=== PATIENT | female | born 1940 | race African-American/Black ===

== ENCOUNTER 2016-11-27 09:44 | Outpatient (CLI) | payer MEDICARE ==
[2016-11-27 12:30] LABS: Hemoglobin A1c 5.5 % (4.0-6.0)
== END 2016-11-27 09:45 | disposition home or self-care (01) ==
LOC: NAVSJIPCSP 09:44
PROVIDERS: ATTEND Internal Medicine
DX: E11.29 Type 2 diabetes mellitus with other diabetic kidney complication (principal); Z79.899 Other long term (current) drug therapy
CPT/HCPCS: 36415; 80061; 83036

== ENCOUNTER 2017-02-27 09:08 | Outpatient (CLI) | payer MEDICARE ==
[2017-02-27 12:32] LABS: Hemoglobin A1c 5.5 % (4.0-6.0)
[2017-02-27 13:13] LABS: Cardiac Risk 2.3 (Less than 4.5)
== END 2017-02-27 09:09 | disposition home or self-care (01) ==
LOC: NAVSJIPCSP 09:08
PROVIDERS: ATTEND Internal Medicine
DX: E11.29 Type 2 diabetes mellitus with other diabetic kidney complication (principal); I11.9 Hypertensive heart disease without heart failure; E78.5 Hyperlipidemia, unspecified; Z79.899 Other long term (current) drug therapy
CPT/HCPCS: 36415; 80061; 83036

== ENCOUNTER 2017-06-12 09:07 | Outpatient (CLI) | payer MEDICARE ==
[2017-06-12 12:28] LABS: Hemoglobin A1c 5.5 % (4.0-6.0)
[2017-06-12 12:53] LABS: Cardiac Risk 2.2 (Less than 4.5)
== END 2017-06-12 09:08 | disposition home or self-care (01) ==
LOC: NAVSJIPCSP 09:07
PROVIDERS: ATTEND Internal Medicine
DX: E11.29 Type 2 diabetes mellitus with other diabetic kidney complication (principal); E78.5 Hyperlipidemia, unspecified
CPT/HCPCS: 36415; 80061; 83036

== ENCOUNTER 2020-01-28 19:33 | Inpatient (IN) | payer MEDICARE ==
[2020-01-28] MEDS ORDERED: Dextrose 50% Abboject 50 ML SYRINGE IVP PRN (20:31)
[2020-01-28] MEDS ORDERED: HumaLOG 300 UNITS/3 ML VIAL SC PRN ×2 (20:31)
[2020-01-28] MEDS ORDERED: Dextrose 5% in Water 1,000 ML IV PRN (20:31)
[2020-01-28] MEDS ORDERED: AZELASTINE HCL 0.15% EA NARE PRN (22:26)
[2020-01-28] MEDS ORDERED: Famotidine 20 MG TAB PO PRN (22:29)
[2020-01-28] MEDS ORDERED: Fluticasone Propionate Nasal Spray 16 gm Bottle NASAL PRN (22:29)
[2020-01-28] MEDS ORDERED: HYDROcodone/Acetaminophen 5/325 mg Tablet PO PRN ×2 (22:30→22:32)
[2020-01-28] MEDS ORDERED: Loratadine 10 MG TAB PO PRN (22:32)
[2020-01-28] MEDS ORDERED: traMADol HCl 50 MG TAB PO PRN (22:33)
[2020-01-29 05:52] LABS: ALT (SGPT) 7 U/L (8-55); AST (SGOT) 15 U/L (5-34); Albumin 3.3 g/dL (3.4-4.8); Alkaline Phosphatase 48 U/L (40-110); Anion Gap 14 mmol/L (10-20); BUN (Urea Nitrogen) 15 mg/dL (9.8-20.1); Bilirubin, Total 0.4 mg/dL (0.2-1.2); Calc. Creatinine Clearance 49 mL/min (70-130); Carbon Dioxide 24 mmol/L (23-31); Chloride 105 mmol/L (98-107); Estimated GFR-MDRD 56; Globulin 2.9 g/dL (2.4-3.5); Glucose 96 mg/dL (83-110); Potassium 4.2 mmol/L (3.5-5.1); Protein, Total 6.2 g/dL (6.0-8.3); Sodium 139 mmol/L (136-145)
[2020-01-29 05:57] LABS: Anisocytosis SLIGHT = 6-15 cells (100X) (0-5/hpf); Band 20 % (5-11); Eosinophils 4 % (0-10); Hemoglobin 8.3 g/dL (12.0-16.0); Hypochromia MODERATE=16-30 cells (100X) (0-5/hpf); Lymphocytes 9 % (21-51); MDiff Complete? YES; Mean Corpuscular HGB CONC 30.4 g/dL (32.0-36.0); Mean Corpuscular Hemoglobin 25.7 pg (27.0-31.0); Mean Corpuscular Volume 84.6 fL (78.0-98.0); Mean Platelet Volume 9.1 fL (7.4-10.4); Metamyelocyte 1 % (0-0); Monocytes 4 % (0-10); Neutrophil 62 % (42-75); Platelet Count 188 thou/uL (130-400); Platelet Morphology Comment Appears Adequate; Polychromasia SLIGHT = 2-3 cells (100X) (0-2/hpf); RBC Distribution Width 13.2 % (11.5-14.5); Red Blood Cell (RBC) Count 3.25 mill/uL (4.20-5.40); White Blood Cell (WBC) Count 11.6 thou/uL (4.8-10.8)
[2020-01-29] MEDS ORDERED: metFORMIN 500 MG TAB PO SCH (08:00)
[2020-01-29] MEDS ORDERED: Carvedilol 6.25 MG TAB PO SCH (09:00)
[2020-01-29] MEDS ORDERED: Aspirin 81 mg Enteric Coated Tablet PO SCH (09:00)
[2020-01-29] MEDS ORDERED: Amlodipine 5 MG TAB PO SCH (09:00)
[2020-01-29] MEDS ORDERED: Lisinopril 20 MG TAB PO SCH (09:00)
[2020-01-29] MEDS ORDERED: Senokot S 8.6-50 MG TAB PO SCH (09:00)
[2020-01-29] MEDS ORDERED: Multivitamin W/ Minerals 1 TAB PO SCH (09:00)
--- NOTE | 2020-01-29 09:49 | HP ---
PRINCIPAL DIAGNOSIS: Status post left hip arthroplasty for physical therapy. BRIEF HISTORY: This is a very pleasant 79-year-old female who is well known to me, underwent left total hip replacement. She was felt to be a candidate for inpatient rehabilitation and was transferred here. The patient is resting in bed and states that her pain is controlled. She states that she wants to get better and go home soon. She denies any lightheadedness or dizziness. No family at bedside. She apparently walked 120 feet yesterday. Discussed with nursing. PAST MEDICAL HISTORY: 1. Hypertension. 2. Dyslipidemia. 3. Diabetes mellitus type 2. 4. Osteoarthritis. 5. Allergic rhinitis. 6. Normocytic normochromic anemia. 7. Chronic kidney disease stage 2. ALLERGIES: NO KNOWN DRUG ALLERGIES. FAMILY HISTORY: Noncontributory to current admission. PSYCHOSOCIAL HISTORY: Denies any current tobacco, alcohol, or recreational drug abuse. MEDICATIONS: She has been transferred here on the following medications: 1. Norvasc 10 mg daily. 2. Ecotrin 81 b.i.d. 3. Lipitor 20 mg daily. 4. Carvedilol 6.25 mg b.i.d. 5. Vitamin D3 1000 international units daily. 6. Pepcid 20 mg b.i.d. 7. Flonase nasal spray 1 spray in each nostril daily. 8. Zestril 20 mg daily. 9. Claritin 10 mg daily. 10. Metformin 500 mg b.i.d. 11. Azelastine nasal spray one spray to each nostril daily. 12. [place] 5/325 one to two tabs q.6 p.r.n. ALLERGIES: NO KNOWN DRUG ALLERGIES. PAST SURGICAL HISTORY: None significant other than this recent left hip replacement. PHYSICAL EXAMINATION: GENERAL: Very pleasant 79-year-old female, who is up in bed eating breakfast. She is awake, alert, and oriented x3. She is not in any distress. She denies any concerns or questions. VITAL SIGNS: She is afebrile. T-max was 100.1 last night. It is 99.6, pulse 91, respirations 18, oxygen saturation 98% on room air, blood pressure 175/74. CARDIOVASCULAR: S1 and S2 plus. RESPIRATORY: Normal vesicular breath sounds. ABDOMEN: Soft, nontender. Bowel sounds heard in all quadrants. EXTREMITIES: Without cyanosis or clubbing. Trace edema, left leg. Left hip incision with dressing. CENTRAL NERVOUS SYSTEM: AAO x3. Cranial nerves 2 through 12 intact. Grossly nonfocal. HEENT: Normocephalic and atraumatic. Pupils are equally reacting to light and accommodation. NECK: No JVD, thyromegaly, cervical adenopathy, or throat exudates. No carotid bruits. LABORATORY VALUES: This morning shows a sodium of 139, potassium is 4.2, BUN and creatinine are 15 and 1.13. White count is 11.6, H and H are 8.3 and 27.5. INR is 1. IMPRESSION: 1. Diabetes mellitus type 2. 2. Hypertension. 3. Dyslipidemia. 4. Allergic rhinitis. 5. Osteoarthritis. 6. Chronic kidney disease, stage 2. PLAN: 1. Continue current medications. 2. 1800-calorie heart healthy ADA renal diet. 3. Accu-Cheks with sliding scale coverage. 4. DVT prophylaxis-she is on aspirin. 5. Decubitus precaution. 6. Stress ulcer prophylaxis. 7. Orthopedic precautions and incision care. 8. Routine laboratory values. 9. PT/OT eval and treat. 10. Accu-Cheks with sliding scale coverage. 11. Discussed with the patient in detail. All questions answered. Job ID: [id number]
[2020-01-29] MEDS ORDERED: Sodium Chloride 0.9% 1,000 ML IV SCH (14:15)
[2020-01-29] MEDS ORDERED: Famotidine 20 MG TAB PO PRN (14:19)
[2020-01-29] MEDS ORDERED: Loratadine 10 MG TAB PO PRN (14:20)
[2020-01-29] MEDS: metFORMIN 500 MG TAB PO SCH (17:17)
[2020-01-29] MEDS: Nystatin 500,000 UNITS/5 ML UDCUP SSW SCH ×2 (17:17→23:53)
[2020-01-29] MEDS: Senokot S 8.6-50 MG TAB PO SCH (20:44)
[2020-01-29] MEDS: Aspirin 81 mg Enteric Coated Tablet PO SCH (20:44)
[2020-01-29] MEDS: Carvedilol 6.25 MG TAB PO SCH (20:45)
[2020-01-29] MEDS: HYDROcodone/Acetaminophen 5/325 mg Tablet PO PRN (20:45)
[2020-01-29] MEDS ORDERED: Atorvastatin Calcium 20 MG TAB PO SCH (21:00)
[2020-01-29] MEDS ORDERED: Enalaprilat Dihydrate 1.25 MG/ML VIAL SLOW IVP SCH (21:00)
[2020-01-30] MEDS: Nystatin 500,000 UNITS/5 ML UDCUP SSW SCH ×4 (05:24→23:53)
[2020-01-30] MEDS: metFORMIN 500 MG TAB PO SCH ×2 (08:01→17:00)
[2020-01-30] MEDS: Senokot S 8.6-50 MG TAB PO SCH ×2 (08:02→20:48)
[2020-01-30] MEDS: Multivitamin W/ Minerals 1 TAB PO SCH (08:02)
[2020-01-30] MEDS: Aspirin 81 mg Enteric Coated Tablet PO SCH ×2 (08:02→20:48)
[2020-01-30] MEDS: Amlodipine 5 MG TAB PO SCH (09:46)
[2020-01-30] MEDS: Lisinopril 20 MG TAB PO SCH (09:47)
[2020-01-30] MEDS: Carvedilol 6.25 MG TAB PO SCH ×2 (09:47→20:48)
[2020-01-30] MEDS: HYDROcodone/Acetaminophen 5/325 mg Tablet PO PRN (20:43)
[2020-01-30] MEDS: AZELASTINE HCL 0.15% EA NARE SCH (20:57)
[2020-01-31] MEDS: HYDROcodone/Acetaminophen 5/325 mg Tablet PO PRN ×3 (05:55→20:49)
[2020-01-31] MEDS: Nystatin 500,000 UNITS/5 ML UDCUP SSW SCH ×4 (05:56→23:34)
--- NOTE | 2020-01-31 08:31 | PRG ---
DATE OF SERVICE: 01/30/[address] Irma Baker. SUBJECTIVE: The patient lying in bed, feels well. No complaints of pain at rest, but does have some pain on working with therapy, but is tolerating her pain and working with therapy. She denies any chest pain, shortness of breath, nausea, or vomiting. OBJECTIVE: VITAL SIGNS: Show temperature 97.4, pulse 72, respirations 20, O2 saturations 98% on room air, blood pressure is 160/69. LUNGS: Clear. CARDIAC: Regular rhythm. Accu-Cheks range 87 to 119. MUSCULOSKELETAL: Left lateral hip incision healing well. ASSESSMENT: 1. Resolving left total hip replacement. 2. Hypertension, controlled to goal. 3. Type 2 diabetes, controlled to goal. 4. Chronic kidney disease, stage 2, stable. PLAN: 1. Continue PT, OT. 2. Continue to monitor vital signs closely. 3. Continue stress ulcer prophylaxis. 4. Continue pain relief with [place] and monitor for constipation or nausea. Job ID: [id number]
[2020-01-31] MEDS: Amlodipine 5 MG TAB PO SCH (10:24)
[2020-01-31] MEDS: metFORMIN 500 MG TAB PO SCH ×2 (10:24→16:43)
[2020-01-31] MEDS: Aspirin 81 mg Enteric Coated Tablet PO SCH ×2 (10:25→20:45)
[2020-01-31] MEDS: Multivitamin W/ Minerals 1 TAB PO SCH (10:25)
[2020-01-31] MEDS: Lisinopril 20 MG TAB PO SCH (10:26)
[2020-01-31] MEDS: Senokot S 8.6-50 MG TAB PO SCH ×2 (10:26→20:48)
[2020-01-31] MEDS: Carvedilol 6.25 MG TAB PO SCH ×2 (10:27→20:45)
[2020-01-31] MEDS: Fluticasone Propionate Nasal Spray 16 gm Bottle NASAL SCH (10:28)
[2020-01-31] MEDS: AZELASTINE HCL 0.15% EA NARE SCH ×2 (10:37→21:01)
[2020-02-01] MEDS: HYDROcodone/Acetaminophen 5/325 mg Tablet PO PRN ×3 (05:15→21:08)
[2020-02-01] MEDS: Nystatin 500,000 UNITS/5 ML UDCUP SSW SCH ×3 (05:16→17:58)
[2020-02-01] MEDS: Multivitamin W/ Minerals 1 TAB PO SCH (09:17)
[2020-02-01] MEDS: Aspirin 81 mg Enteric Coated Tablet PO SCH ×2 (09:17→21:17)
[2020-02-01] MEDS: metFORMIN 500 MG TAB PO SCH ×2 (09:17→17:58)
[2020-02-01] MEDS: Carvedilol 6.25 MG TAB PO SCH ×2 (09:17→21:11)
[2020-02-01] MEDS: Amlodipine 5 MG TAB PO SCH (09:18)
[2020-02-01] MEDS: Fluticasone Propionate Nasal Spray 16 gm Bottle NASAL SCH (09:19)
[2020-02-01] MEDS: Senokot S 8.6-50 MG TAB PO SCH ×2 (09:19→21:11)
[2020-02-01] MEDS: Lisinopril 20 MG TAB PO SCH (09:20)
--- NOTE | 2020-02-01 09:20 | PRG ---
DATE OF SERVICE: 01/31/2020 SUBJECTIVE: The patient feels well, resting in bed, eating her supper. She has had a good day. OBJECTIVE: VITAL SIGNS: Shows her temperature is 97.5, pulse is 76, respirations are 20, O2 saturation is 96% on room air, blood pressure is 143/85. LUNGS: Clear. CARDIAC: Showed regular rhythm. ABDOMEN: Soft, nontender. EXTREMITIES: Left lateral hip incision, healing well. ASSESSMENT: 1. Resolving left total hip. 2. Hypertension, controlled to goal. 3. Type 2 diabetes, controlled to goal. 4. Chronic kidney disease, stage 2. PLAN: 1. Ready to start PT, OT again tomorrow. Continue stress ulcer prophylaxis. 2. Continue pain relief, [place]. 3. Continue Accu-Cheks. We will monitor and titrate and control diabetes. Job ID: [id number]
[2020-02-01] MEDS: AZELASTINE HCL 0.15% EA NARE SCH ×2 (09:23→21:12)
--- NOTE | 2020-02-01 20:01 | PRG ---
DATE OF SERVICE: 02/01/2020 SUBJECTIVE: Ms. Hagan is resting in bed. She is happy with her progress. She states that her pain is improving. She denies any questions or concerns. She has an appointment for followup with her ENT and I advised her it is best she reschedule that for right after discharge. She is agreeable. No active or acute issues at the moment. It is just routine followup. OBJECTIVE: VITAL SIGNS: She is afebrile. Heart rate is 69, respirations 18, oxygen saturation 96% on room air, blood pressure 144/65. CARDIOVASCULAR: S1, S2 plus. RESPIRATORY: Normal vesicular breath sounds. ABDOMEN: Soft, nontender, bowel sounds heard in all quadrants. EXTREMITIES: Without cyanosis or clubbing. Trace left leg edema. Left hip incision with dressing. CENTRAL NERVOUS SYSTEM: Awake and responsive. Generalized weakness, otherwise nonfocal. IMPRESSION: 1. Hypertension. 2. Dyslipidemia. 3. Diabetes mellitus type 2. 4. Osteoarthritis, status post left hip arthroplasty. 5. Allergic rhinitis. 6. Chronic kidney disease, stage 2. 7. Normocytic normochromic anemia. 8. Her blood sugars are great at 105, 107, 105, 100, 111 and 93. PLAN: 1. Continue current medications. 2. 1800 calorie heart healthy ADA renal diet. 3. Accu-Cheks with sliding scale coverage. 4. DVT prophylaxis with the Orthopedic recommended regimen. 5. Decubitus precautions. 6. Stress ulcer prophylaxis. 7. Orthopedic precautions and incision care. 8. Continue therapy. 9. Routine laboratory values. 10. Discussed with the patient in detail and all questions answered. Job ID: [id number]
[2020-02-02] MEDS: Nystatin 500,000 UNITS/5 ML UDCUP SSW SCH ×4 (05:28→17:34)
[2020-02-02] MEDS: Amlodipine 5 MG TAB PO SCH (08:40)
[2020-02-02] MEDS: metFORMIN 500 MG TAB PO SCH ×2 (08:40→17:34)
[2020-02-02] MEDS: Aspirin 81 mg Enteric Coated Tablet PO SCH ×2 (08:40→21:01)
[2020-02-02] MEDS: Lisinopril 20 MG TAB PO SCH (08:41)
[2020-02-02] MEDS: Senokot S 8.6-50 MG TAB PO SCH ×2 (08:41→21:01)
[2020-02-02] MEDS: Multivitamin W/ Minerals 1 TAB PO SCH (08:41)
[2020-02-02] MEDS: Carvedilol 6.25 MG TAB PO SCH ×2 (08:41→21:01)
[2020-02-02] MEDS: AZELASTINE HCL 0.15% EA NARE SCH ×2 (08:43→21:03)
[2020-02-02] MEDS: Fluticasone Propionate Nasal Spray 16 gm Bottle NASAL SCH (08:44)
[2020-02-02] MEDS: HYDROcodone/Acetaminophen 5/325 mg Tablet PO PRN ×2 (11:33→19:23)
--- NOTE | 2020-02-02 13:45 | PRG ---
DATE OF SERVICE: 02/02/2020 SUBJECTIVE: Ms. Hagan is doing well, resting in bed, finished her morning session of therapy. She is happy with her progress. Denies any questions or concerns. OBJECTIVE: VITAL SIGNS: She is afebrile. Heart rate 76, respirations 18, oxygen saturation 96% on room air, blood pressure 156/70. CARDIOVASCULAR: S1 and S2 plus. RESPIRATORY: Normal vesicular breath sounds. ABDOMEN: Soft, nontender. Bowel sounds heard in all quadrants. EXTREMITIES: Without cyanosis or clubbing. Trace left leg edema. CENTRAL NERVOUS SYSTEM: Improving deconditioning. IMPRESSION: 1. Left hip arthroplasty for osteoarthritis. 2. Diabetes mellitus type 2. 3. Hypertension. 4. Dyslipidemia. 5. Allergic rhinitis. PLAN: 1. Continue current medications. 2. 1800 calorie heart healthy ADA diet. 3. Accu-Cheks with sliding scale coverage. 4. DVT and stress ulcer prophylaxis. 5. Decubitus precautions. 6. Routine laboratory values. 7. Orthopedic precautions and incision care. 8. Physical therapy. Job ID: [id number]
[2020-02-03] MEDS: Nystatin 500,000 UNITS/5 ML UDCUP SSW SCH ×5 (02:41→23:25)
[2020-02-03] MEDS: Amlodipine 5 MG TAB PO SCH (09:35)
[2020-02-03] MEDS: Carvedilol 6.25 MG TAB PO SCH ×2 (09:35→19:53)
[2020-02-03] MEDS: HYDROcodone/Acetaminophen 5/325 mg Tablet PO PRN ×2 (09:35→19:55)
[2020-02-03] MEDS: metFORMIN 500 MG TAB PO SCH ×2 (09:36→17:32)
[2020-02-03] MEDS: Aspirin 81 mg Enteric Coated Tablet PO SCH ×2 (09:36→19:53)
[2020-02-03] MEDS: Senokot S 8.6-50 MG TAB PO SCH ×2 (09:36→19:53)
[2020-02-03] MEDS: Multivitamin W/ Minerals 1 TAB PO SCH (09:36)
[2020-02-03] MEDS: Lisinopril 20 MG TAB PO SCH (09:36)
[2020-02-03] MEDS: Fluticasone Propionate Nasal Spray 16 gm Bottle NASAL SCH (09:42)
[2020-02-03] MEDS: AZELASTINE HCL 0.15% EA NARE SCH ×2 (09:43→20:52)
--- NOTE | 2020-02-03 13:36 | PRG ---
DATE OF SERVICE: 02/03/2020 SUBJECTIVE: Ms. Hagan is doing well, improving with therapy. Pain is under control. Denies any questions or concerns. OBJECTIVE: VITAL SIGNS: She is afebrile, heart rate is 70, respirations 18, oxygen saturation 97% on room air, blood pressure is 130/60. CARDIOVASCULAR SYSTEM: S1 and S2 plus. RESPIRATORY SYSTEM: Normal vesicular breath sounds. ABDOMEN: Soft, nontender. Bowel sounds heard in all quadrants. EXTREMITIES: Without cyanosis or clubbing. Left hip incision with dressing. CENTRAL NERVOUS SYSTEM: Grossly nonfocal. LABORATORY DATA: Blood sugars are great at 0109 hours, 85, 113, 106, and 115. IMPRESSION: 1. Diabetes mellitus, type 2. 2. Hypertension. 3. Dyslipidemia. 4. Osteoarthritis. 5. Allergic rhinitis. 6. Improving deconditioning. PLAN: 1. Continue current medications. 2. 1800 calorie heart healthy ADA diet. 3. Accu-Cheks with sliding scale coverage. 4. Orthopedic precautions and incision care. 5. DVT prophylaxis per Orthopedic recommendations. 6. Decubitus precaution. 7. Stress ulcer prophylaxis. 8. Routine laboratory values. 9. Therapy. Job ID: [id number]
[2020-02-04] MEDS: Nystatin 500,000 UNITS/5 ML UDCUP SSW SCH ×3 (05:37→17:50)
[2020-02-04] MEDS: Multivitamin W/ Minerals 1 TAB PO SCH (09:15)
[2020-02-04] MEDS: Amlodipine 5 MG TAB PO SCH (09:15)
[2020-02-04] MEDS: metFORMIN 500 MG TAB PO SCH ×2 (09:15→17:50)
[2020-02-04] MEDS: Senokot S 8.6-50 MG TAB PO SCH ×2 (09:16→21:40)
[2020-02-04] MEDS: Carvedilol 6.25 MG TAB PO SCH ×2 (09:16→21:40)
[2020-02-04] MEDS: Aspirin 81 mg Enteric Coated Tablet PO SCH ×2 (09:16→21:40)
[2020-02-04] MEDS: Fluticasone Propionate Nasal Spray 16 gm Bottle NASAL SCH (09:16)
[2020-02-04] MEDS: Lisinopril 20 MG TAB PO SCH (09:16)
[2020-02-04] MEDS: HYDROcodone/Acetaminophen 5/325 mg Tablet PO PRN ×2 (09:17→17:50)
[2020-02-04] MEDS: AZELASTINE HCL 0.15% EA NARE SCH ×2 (09:31→21:43)
--- NOTE | 2020-02-04 13:25 | PRG ---
DATE OF SERVICE: 02/04/2020 SUBJECTIVE: Ms. Hagan is doing well. Denies any complaints. Resting comfortably. Pain is improving. Happy with her progress. Discussed with Therapy and they feel like she should be safe to go home, improved enough, next . OBJECTIVE: VITAL SIGNS: She is afebrile. Heart rate 78, respirations 18, oxygen saturation 98% on room air, blood pressure 153/70. CARDIOVASCULAR: S1 and S2 plus. RESPIRATORY: Normal vesicular breath sounds. ABDOMEN: Soft, nontender. Bowel sounds heard in all quadrants. EXTREMITIES: Without cyanosis or clubbing. IMPRESSION: 1. Diabetes mellitus type 2. 2. Hypertension. 3. Dyslipidemia. 4. Allergic rhinitis. 5. Status post left hip arthroplasty. PLAN: 1. Continue current medications. 2. 1800 calorie heart healthy ADA diet. 3. Accu-Cheks with sliding scale coverage. 4. DVT prophylaxis per Orthopedic recommendation. 5. Orthopedic precautions and incision care. 6. Physical therapy. 7. Routine laboratory values. Job ID: [id number]
[2020-02-05] MEDS: Nystatin 500,000 UNITS/5 ML UDCUP SSW SCH ×4 (00:01→16:47)
[2020-02-05] MEDS: HYDROcodone/Acetaminophen 5/325 mg Tablet PO PRN ×2 (09:07→21:27)
[2020-02-05] MEDS: Multivitamin W/ Minerals 1 TAB PO SCH (09:11)
[2020-02-05] MEDS: Carvedilol 6.25 MG TAB PO SCH ×2 (09:11→21:29)
[2020-02-05] MEDS: Amlodipine 5 MG TAB PO SCH (09:11)
[2020-02-05] MEDS: metFORMIN 500 MG TAB PO SCH ×2 (09:11→16:47)
[2020-02-05] MEDS: Senokot S 8.6-50 MG TAB PO SCH ×2 (09:11→21:28)
[2020-02-05] MEDS: Aspirin 81 mg Enteric Coated Tablet PO SCH ×2 (09:12→21:29)
[2020-02-05] MEDS: Lisinopril 20 MG TAB PO SCH (09:12)
[2020-02-05] MEDS: Fluticasone Propionate Nasal Spray 16 gm Bottle NASAL SCH (09:13)
[2020-02-05] MEDS: AZELASTINE HCL 0.15% EA NARE SCH ×2 (09:14→21:26)
--- NOTE | 2020-02-05 09:32 | PRG ---
DATE OF SERVICE: 02/05/2020 SUBJECTIVE: Ms. Hagan is resting in bed after finishing breakfast. She is feeling lazy today. She denies any questions or concerns. She is happy with her progress. Pain is well controlled. Discussed with nursing. OBJECTIVE: VITAL SIGNS: She is afebrile. Heart rate 74, respirations 20, oxygen saturation 97% on room air, blood pressure is 126/55. CARDIOVASCULAR: S1, S2 plus. RESPIRATORY: Normal vesicular breath sounds. ABDOMEN: Soft and nontender. Bowel sounds heard in all quadrants. EXTREMITIES: Without cyanosis or clubbing. Trace left leg edema. Left hip incision is healthy. CENTRAL NERVOUS SYSTEM: Grossly nonfocal. LABORATORY DATA: Blood sugars are 114, 108, 118, 82, 109, and 94. IMPRESSION: 1. Diabetes mellitus type 2. 2. Hypertension. 3. Dyslipidemia. 4. Allergic rhinitis. 5. Osteoarthritis, status post left hip arthroplasty. 6. Chronic kidney disease stage 2. PLAN: 1. Continue current medications. 2. 1800-calorie heart healthy ADA diet. 3. Accu-Cheks with sliding scale coverage. 4. Orthopedic precautions and incision care. 5. DVT prophylaxis per Orthopedic recommendations. 6. Decubitus precaution. 7. Stress ulcer prophylaxis. 8. Continue therapy. 9. Routine laboratory values. Job ID: [id number]
[2020-02-05 11:49] VITALS: BMI 21.2
[2020-02-06] MEDS: Nystatin 500,000 UNITS/5 ML UDCUP SSW SCH ×4 (00:08→17:32)
[2020-02-06] MEDS: Multivitamin W/ Minerals 1 TAB PO SCH (08:11)
[2020-02-06] MEDS: Amlodipine 5 MG TAB PO SCH (08:11)
[2020-02-06] MEDS: Lisinopril 20 MG TAB PO SCH (08:12)
[2020-02-06] MEDS: metFORMIN 500 MG TAB PO SCH ×2 (08:12→17:32)
[2020-02-06] MEDS: Carvedilol 6.25 MG TAB PO SCH ×2 (08:12→21:13)
[2020-02-06] MEDS: Senokot S 8.6-50 MG TAB PO SCH ×2 (08:12→21:13)
[2020-02-06] MEDS: Aspirin 81 mg Enteric Coated Tablet PO SCH ×2 (08:12→21:13)
[2020-02-06] MEDS: Fluticasone Propionate Nasal Spray 16 gm Bottle NASAL SCH (08:56)
[2020-02-06] MEDS: AZELASTINE HCL 0.15% EA NARE SCH ×2 (08:57→21:13)
--- NOTE | 2020-02-06 15:46 | PRG ---
DATE OF SERVICE: SUBJECTIVE: Ms. Hagan is doing well. She is up in her bed, working on Vessix. She apparently is doing her bed exercises. She is happy with her progress. Pain is well controlled. OBJECTIVE: VITAL SIGNS: She is afebrile. Heart rate 72, respirations 16, oxygen saturation 99% on room air, and blood pressure 141/66. CARDIOVASCULAR SYSTEM: S1 and S2 plus. RESPIRATORY SYSTEM: Normal vesicular breath sounds. ABDOMEN: Soft and nontender. Bowel sounds heard in all quadrants. EXTREMITIES: Without cyanosis or clubbing. Hip incision is healthy. IMPRESSION: 1. Diabetes mellitus, type 2. 2. Hypertension. 3. Dyslipidemia. 4. Osteoarthritis, status post left hip arthroplasty. 5. Allergic rhinitis. 6. Chronic kidney disease stage 2 and improving deconditioning. PLAN: 1. Continue current medications. 2. 1800-calorie heart healthy ADA diet. 3. Accu-Cheks with sliding scale coverage. 4. Orthopedic precautions. 5. DVT prophylaxis. 6. Decubitus precaution. 7. Stress ulcer prophylaxis. 8. Routine laboratory values. Job ID: [id number]
[2020-02-06] MEDS: HYDROcodone/Acetaminophen 5/325 mg Tablet PO PRN (21:14)
[2020-02-07] MEDS: Nystatin 500,000 UNITS/5 ML UDCUP SSW SCH ×5 (01:34→23:52)
[2020-02-07] MEDS: Lisinopril 20 MG TAB PO SCH (08:00)
[2020-02-07] MEDS: metFORMIN 500 MG TAB PO SCH ×2 (08:00→17:19)
[2020-02-07] MEDS: Multivitamin W/ Minerals 1 TAB PO SCH (08:00)
[2020-02-07] MEDS: Aspirin 81 mg Enteric Coated Tablet PO SCH ×2 (08:01→20:30)
[2020-02-07] MEDS: Carvedilol 6.25 MG TAB PO SCH ×2 (08:01→20:30)
[2020-02-07] MEDS: Amlodipine 5 MG TAB PO SCH (08:01)
[2020-02-07] MEDS: Senokot S 8.6-50 MG TAB PO SCH ×2 (08:01→20:30)
[2020-02-07] MEDS: AZELASTINE HCL 0.15% EA NARE SCH ×2 (08:02→20:30)
[2020-02-07] MEDS: Fluticasone Propionate Nasal Spray 16 gm Bottle NASAL SCH (08:10)
--- NOTE | 2020-02-07 12:54 | PRG ---
DATE OF SERVICE: 02/07/2020 SUBJECTIVE: Ms. Hagan is up on the side of her bed, finishing up lunch. She is happy with her progress. She is enjoying her Saturday. Denies any questions or concerns. Discharge date is still set for coming . OBJECTIVE: VITAL SIGNS: She is afebrile, heart rate 72, respirations 18, oxygen saturation 99% on room air, blood pressure 135/63. CARDIOVASCULAR: S1 and S2 plus. RESPIRATORY: Normal vesicular breath sounds. ABDOMEN: Soft and nontender. Bowel sounds heard in all quadrants. EXTREMITIES: Without cyanosis or clubbing. Left hip incision is healthy. CENTRAL NERVOUS SYSTEM: Improving deconditioning. LABORATORY DATA: Blood sugars are excellent at 81, 106, 88, 90, and 107. IMPRESSION: 1. Diabetes mellitus, type 2. 2. Hypertension. 3. Dyslipidemia. 4. Allergic rhinitis. 5. Chronic kidney disease, stage 2. 6. Osteoarthritis, status post left total hip replacement. PLAN: 1. Continue current medications. 2. 1800-calorie heart-healthy ADA diet. 3. Accu-Cheks with sliding scale coverage. 4. DVT prophylaxis with PlexiPulses and aspirin b.i.d. 5. Decubitus precautions. 6. Stress ulcer prophylaxis. 7. Orthopedic precautions and incision care. 8. Physical therapy. 9. Routine laboratory values. 10. Discharge planning. Job ID: [id number]
[2020-02-07] MEDS: HYDROcodone/Acetaminophen 5/325 mg Tablet PO PRN (20:32)
[2020-02-08] MEDS: Nystatin 500,000 UNITS/5 ML UDCUP SSW SCH ×4 (05:39→23:47)
[2020-02-08] MEDS: Aspirin 81 mg Enteric Coated Tablet PO SCH ×2 (08:39→20:45)
[2020-02-08] MEDS: Amlodipine 5 MG TAB PO SCH (08:40)
[2020-02-08] MEDS: metFORMIN 500 MG TAB PO SCH ×2 (08:40→17:27)
[2020-02-08] MEDS: Multivitamin W/ Minerals 1 TAB PO SCH (08:40)
[2020-02-08] MEDS: Senokot S 8.6-50 MG TAB PO SCH ×2 (08:40→20:46)
[2020-02-08] MEDS: Lisinopril 20 MG TAB PO SCH (08:40)
[2020-02-08] MEDS: Fluticasone Propionate Nasal Spray 16 gm Bottle NASAL SCH (08:40)
[2020-02-08] MEDS: Carvedilol 6.25 MG TAB PO SCH ×2 (08:40→20:46)
[2020-02-08] MEDS: AZELASTINE HCL 0.15% EA NARE SCH ×2 (08:41→20:45)
--- NOTE | 2020-02-08 17:21 | PRG ---
DATE OF SERVICE: 02/08/2020 Soft, nontender. Bowel sounds heard in all quadrants. EXTREMITIES: Without cyanosis or clubbing. Left hip incision is healthy. CENTRAL NERVOUS SYSTEM: Improving deconditioning. LABORATORY DATA: Blood sugars are well controlled at 107, 93, 101, . IMPRESSION: 1. Osteoarthritis, status post left hip arthroplasty. 2. Diabetes mellitus type 2. 3. Hypertension. 4. Dyslipidemia. 5. Allergic rhinitis. 6. Chronic kidney disease, stage 2. PLAN: 1. Continue current medications. 2. 1800 calorie heart healthy ADA diet. 3. Accu-Cheks with sliding scale coverage. 4. DVT prophylaxis with PlexiPulses. 5. Decubitus precautions. 6. Stress ulcer prophylaxis. 7. Routine laboratory values. 8. Physical therapy. 9. Discharge planning. Job ID: [id number]
--- NOTE | 2020-02-08 17:22 | PRG ---
DATE OF SERVICE: 02/08/2020 SUBJECTIVE: Ms. Hagan is resting in bed. She just finished her lunch. She is happy with her progress. Denies any questions or concerns. OBJECTIVE: VITAL SIGNS: She is afebrile. Heart rate is 75, blood pressure 135/63, respiratory rate is 18. CARDIOVASCULAR SYSTEM: S1 and S2 plus. RESPIRATORY: Normal vesicular breath sounds. ABDOMEN: Soft, nontender. Bowel sounds heard in all quadrants. EXTREMITIES: Without cyanosis or clubbing. Left hip incision is healthy. CENTRAL NERVOUS SYSTEM: Improving deconditioning. LABORATORY DATA: Blood sugars are 107, 93, 101, 190. IMPRESSION: 1. Diabetes mellitus, type 2. 2. Hypertension. 3. Dyslipidemia. 4. Allergic rhinitis. 5. Chronic kidney disease, stage 2. 6. Left hip osteoarthritis, status post hip replacement. PLAN: 1. Continue current medications. 2. 1800-calorie heart healthy ADA diet. 3. Accu-Cheks with sliding scale coverage. 4. DVT prophylaxis with PlexiPulses. 5. Decubitus precautions. 6. Stress ulcer prophylaxis. 7. Routine laboratory values. 8. Physical therapy. 9. Discharge planning. Job ID: [id number]
[2020-02-08] MEDS: HYDROcodone/Acetaminophen 5/325 mg Tablet PO PRN (20:47)
[2020-02-09] MEDS: Nystatin 500,000 UNITS/5 ML UDCUP SSW SCH ×4 (06:22→23:59)
[2020-02-09] MEDS: HYDROcodone/Acetaminophen 5/325 mg Tablet PO PRN ×2 (09:24→22:37)
[2020-02-09] MEDS: Carvedilol 6.25 MG TAB PO SCH ×2 (09:26→20:32)
[2020-02-09] MEDS: Amlodipine 5 MG TAB PO SCH (09:26)
[2020-02-09] MEDS: Multivitamin W/ Minerals 1 TAB PO SCH (09:26)
[2020-02-09] MEDS: Aspirin 81 mg Enteric Coated Tablet PO SCH ×2 (09:26→20:32)
[2020-02-09] MEDS: metFORMIN 500 MG TAB PO SCH ×2 (09:26→17:38)
[2020-02-09] MEDS: Senokot S 8.6-50 MG TAB PO SCH ×2 (09:27→20:32)
[2020-02-09] MEDS: AZELASTINE HCL 0.15% EA NARE SCH ×2 (09:28→20:32)
[2020-02-09] MEDS: Lisinopril 20 MG TAB PO SCH (09:29)
[2020-02-09] MEDS: Fluticasone Propionate Nasal Spray 16 gm Bottle NASAL SCH (09:29)
--- NOTE | 2020-02-09 14:05 | PRG ---
DATE OF SERVICE: 02/09/2020 SUBJECTIVE: Ms. Hagan is up in her chair. She finished her morning session of therapy. She is happy with her progress. She states she does need a walker, home health will be arranged from my office. The patient does not have a preference. She denies any questions or concerns. Discussed with nursing. OBJECTIVE: VITAL SIGNS: She is afebrile. Heart rate 71, respirations 16, oxygen saturation 99% on room air, blood pressure 149/69. CARDIOVASCULAR: S1 and S2 plus. RESPIRATORY: Normal vesicular breath sounds. ABDOMEN: Soft, nontender. Bowel sounds heard in all quadrants. EXTREMITIES: Without cyanosis or clubbing. Left hip incision with dressing. CENTRAL NERVOUS SYSTEM: Improving deconditioning. LABORATORY DATA: Blood sugars are 100, 90, 91, 92, 99, and 104. IMPRESSION: 1. Diabetes mellitus type 2. 2. Hypertension. 3. Dyslipidemia. 4. Allergic rhinitis. 5. Osteoarthritis. PLAN: 1. Continue current medications. 2. 1800 calorie heart healthy ADA diet. 3. Accu-Cheks with sliding scale coverage. 4. I advised nursing to contact Dr. Alvarado's office and see if he can remove the alea before discharge. 5. Discharge planning. 6. We will order walker with front wheels. The patient states that she has room to use it in her home. Therapy states that the patient needs it to reduce her risk for falls. Job ID: [id number]
[2020-02-10] MEDS: Nystatin 500,000 UNITS/5 ML UDCUP SSW SCH ×3 (05:28→17:23)
[2020-02-10] MEDS: Multivitamin W/ Minerals 1 TAB PO SCH (08:15)
[2020-02-10] MEDS: Lisinopril 20 MG TAB PO SCH (08:15)
[2020-02-10] MEDS: metFORMIN 500 MG TAB PO SCH ×2 (08:15→17:23)
[2020-02-10] MEDS: Amlodipine 5 MG TAB PO SCH (08:16)
[2020-02-10] MEDS: Carvedilol 6.25 MG TAB PO SCH ×2 (08:16→20:40)
[2020-02-10] MEDS: Senokot S 8.6-50 MG TAB PO SCH ×2 (08:16→20:40)
[2020-02-10] MEDS: HYDROcodone/Acetaminophen 5/325 mg Tablet PO PRN ×2 (08:17→20:42)
[2020-02-10] MEDS: Fluticasone Propionate Nasal Spray 16 gm Bottle NASAL SCH (08:21)
[2020-02-10] MEDS: Aspirin 81 mg Enteric Coated Tablet PO SCH ×2 (08:22→20:40)
[2020-02-10] MEDS: AZELASTINE HCL 0.15% EA NARE SCH ×2 (08:23→21:40)
--- NOTE | 2020-02-10 12:39 | PRG ---
DATE OF SERVICE: 02/10/2020 SUBJECTIVE: Ms. Hagan is doing well, denies any complaints, up in her chair. She states that she is requiring pain medicine only at night. She is scheduled for discharge tomorrow. She is good on all her other prescriptions. I will send in some [place] from the office. OBJECTIVE: VITAL SIGNS: She is afebrile. Heart rate 69, respirations 18, oxygen saturation 96% on room air, blood pressure 156/68. CARDIOVASCULAR: S1 and S2 plus. RESPIRATORY: Normal vesicular breath sounds. ABDOMEN: Soft and nontender. Bowel sounds heard in all quadrants. EXTREMITIES: Without cyanosis or clubbing. Left hip incision is healthy. CENTRAL NERVOUS SYSTEM: Improving deconditioning. IMPRESSION: 1. Osteoarthritis, status post left hip arthroplasty. 2. Diabetes mellitus, type 2. 3. Hypertension. 4. Dyslipidemia. 5. Allergic rhinitis. PLAN: 1. Continue current medications. 2. 1800-calorie heart-healthy ADA diet. 3. Accu-Cheks with sliding scale coverage. 4. DVT prophylaxis. 5. Decubitus precautions. 6. Stress ulcer prophylaxis. 7. Discharge planning. 8. Continue therapy. Job ID: [id number]
[2020-02-11] MEDS: Nystatin 500,000 UNITS/5 ML UDCUP SSW SCH ×3 (03:27→12:04)
[2020-02-11] MEDS: Senokot S 8.6-50 MG TAB PO SCH (07:51)
[2020-02-11] MEDS: Amlodipine 5 MG TAB PO SCH (07:52)
[2020-02-11] MEDS: Lisinopril 20 MG TAB PO SCH (07:52)
[2020-02-11] MEDS: metFORMIN 500 MG TAB PO SCH (07:52)
[2020-02-11] MEDS: Multivitamin W/ Minerals 1 TAB PO SCH (07:52)
[2020-02-11] MEDS: Aspirin 81 mg Enteric Coated Tablet PO SCH (07:52)
[2020-02-11] MEDS: Carvedilol 6.25 MG TAB PO SCH (07:53)
[2020-02-11] MEDS: AZELASTINE HCL 0.15% EA NARE SCH (07:54)
[2020-02-11] MEDS: Fluticasone Propionate Nasal Spray 16 gm Bottle NASAL SCH (07:54)
[2020-02-11 08:08] VITALS: TEMP 97.9
[2020-02-11 12:10] VITALS: BP 129/59
--- NOTE | 2020-02-11 12:58 | DIS ---
DATE OF ADMISSION: 01/28/2020 DATE OF DISCHARGE: 02/11/2020 PRINCIPAL DIAGNOSIS: Osteoarthritis, status post left hip arthroplasty. SECONDARY DIAGNOSES: 1. Diabetes mellitus type 2. 2. Hypertension. 3. Dyslipidemia. 4. Allergic rhinitis. 5. Normocytic normochromic anemia. 6. Chronic kidney disease stage 2. COMPLICATIONS: None. ADVERSE REACTIONS: None. PROCEDURES: None. CONSULTATIONS: Physical Therapy and Occupational Therapy. HOSPITAL COURSE: The patient was admitted after undergoing left hip arthroplasty for therapy. She has done remarkably well. She was deemed stable for discharge home. Therapy felt that she will benefit from a walker with front wheels to help with ambulation and reduce her risk for falls. The patient has been trained in using the walker. She states she has room to use the walker at home. Therapy states that a cane will not be enough. Orders have been written and faxed to [facility] and they are supposed to deliver today. This note will be considered as [id number]. The patient does also require home health. She is homebound. She does not drive. She will benefit from continued therapy per the therapists here and I have arranged for home health. The patient does not have a preference on home health and she wanted me to just choose one and we are ordering it from home as we do not have a manager shipping here except for every 2 weeks. Again, this note will be considered as a [id number] for home health purposes as well. PHYSICAL EXAMINATION: GENERAL: On the day of discharge, the patient is up in her chair. Her daughter is in the room. She denies any questions or concerns. VITAL SIGNS: She is afebrile. Heart rate 74, respirations 18, oxygen saturation 98% on room air, blood pressure 163/74. CARDIOVASCULAR: S1 and S2 plus. RESPIRATORY: Normal vesicular breath sounds. ABDOMEN: Soft, nontender. Bowel sounds heard in all quadrants. EXTREMITIES: Without cyanosis or clubbing. Left hip incision is healthy. CENTRAL NERVOUS SYSTEM: Improving deconditioning. DISCHARGE MEDICATIONS: Same as admission except [place] will be 5/325 one tablet at bedtime as needed because that is all she has been taking. Her other medicines are the same, which includes; 1. Norvasc 10 mg daily. 2. Ecotrin 81 mg b.i.d. She actually can go back to once daily. 3. Carvedilol 6.25 mg b.i.d. 4. Vitamin D3, 1000 units daily. 5. Pepcid 20 mg b.i.d. 6. Flonase 1 spray to each nostril daily. 7. Multivitamin one tablet daily. 8. Lisinopril 20 mg daily. 9. Claritin 10 mg daily as needed. 10. Metformin 500 mg b.i.d. 11. Azelastine nasal spray one spray to each nostril and a stool softener. DISCHARGE INSTRUCTIONS: 1800-calorie heart healthy ADA diet. Accu-Cheks as before. Activity restrictions per Orthopedics. She is to follow up in my office in 2 weeks. She is to call me with any questions or concerns. She does not need any prescriptions except [place], which I am going to send it to [facility] from my office. Total time spent on discharge including coordination of care will be 37 minutes. Job ID: [id number]
== END 2020-02-11 12:15 | disposition home health service (06) | DRG 561 ==
LOC: NAV ACUTE 19:33
PROVIDERS: ADMIT Internal Medicine; ATTEND Internal Medicine
DX: Z47.1 Aftercare following joint replacement surgery (principal); E78.5 Hyperlipidemia, unspecified; N18.2 Chronic kidney disease, stage 2 (mild); I12.9 Hypertensive chronic kidney disease with stage 1 through stage 4 chronic kidney disease, or unspecified chronic kidney disease; E11.22 Type 2 diabetes mellitus with diabetic chronic kidney disease; D64.9 Anemia, unspecified; J30.9 Allergic rhinitis, unspecified; R53.81 Other malaise
CPT/HCPCS: 36416; 80053; 85025

== ENCOUNTER 2020-11-23 08:33 | Emergency (ER) | payer MEDICARE ==
[2020-11-23] MEDS ORDERED: Iopamidol 370 76% 100 ML VIAL ONE (09:00)
[2020-11-23] MEDS ORDERED: Nitroglycerin 2% Ointment 1 INCH/1 GM Packet ONE (09:15)
[2020-11-23] MEDS ORDERED: Ventolin HFA Inhaler 60 PUFF INHALER ONE (09:15)
[2020-11-23] MEDS ORDERED: Aspirin Chewable 81 MG TAB ONE (09:15)
[2020-11-23 09:26] LABS: #Basophils 0.1 thou/uL (0.0-0.2); #Eosinphils 0.3 thou/uL (0.0-0.7); #Lymphocytes 1.4 thou/uL (1.20-3.40); #Monocytes 0.6 thou/uL (0.11-0.59); #Neutrophils 7.1 thou/uL (1.40-6.50); %Eosinophils 3.1 % (0.0-10.0); %Lymphocytes 14.6 % (21.0-51.0); %Monocytes 6.7 % (0.0-10.0); %Neutrophils 74.7 % (42.0-75.0); Mean Corpuscular HGB CONC 31.5 g/dL (32.0-36.0); Mean Corpuscular Hemoglobin 25.3 pg (27.0-31.0); Mean Corpuscular Volume 80.3 fL (78.0-98.0); Mean Platelet Volume 8.2 fL (7.4-10.4); Platelet Count 222 thou/uL (130-400); RBC Distribution Width 12.6 % (11.5-14.5); Red Blood Cell (RBC) Count 3.55 mill/uL (4.20-5.40); White Blood Cell (WBC) Count 9.4 thou/uL (4.8-10.8)
[2020-11-23 09:52] LABS: ALT (SGPT) 57 U/L (8-55); AST (SGOT) 27 U/L (5-34); Albumin 3.9 g/dL (3.4-4.8); Alkaline Phosphatase 122 U/L (40-110); Anion Gap 13 mmol/L (10-20); BUN (Urea Nitrogen) 18 mg/dL (9.8-20.1); Bilirubin, Total 0.6 mg/dL (0.2-1.2); Calc. Creatinine Clearance 0 mL/min (70-130); Calcium 9.2 mg/dL (7.8-10.44); Carbon Dioxide 23 mmol/L (23-31); Chloride 109 mmol/L (98-107); Globulin 2.9 g/dL (2.4-3.5); Glucose 102 mg/dL (83-110); Potassium 4.1 mmol/L (3.5-5.1); Protein, Total 6.8 g/dL (5.8-8.1); Sodium 141 mmol/L (136-145)
[2020-11-23] MEDS ORDERED: Sodium Chloride 0.9% 1,000 ML ONE (10:27)
[2020-11-23] MEDS ORDERED: Furosemide 20 MG/2 ML VIAL ONE (10:27)
[2020-11-23 11:26] LABS: SARS-CoV-2 NAA Rapid Test Not Detected (NotDetected)
== END 2020-11-23 12:38 | disposition short-term general hospital (02) ==
LOC: NAV ERS 08:33
DX: I11.0 Hypertensive heart disease with heart failure (principal); I50.9 Heart failure, unspecified; D64.9 Anemia, unspecified; N28.9 Disorder of kidney and ureter, unspecified; E11.9 Type 2 diabetes mellitus without complications; M35.9 Systemic involvement of connective tissue, unspecified; Z20.822 Contact with and (suspected) exposure to COVID-19
CPT/HCPCS: 0240U; 71046; 71275; 80053; 83605; 83880; 84484; 85025; 85379; 87804; 93005; 94664; 96374; J1940; J7050; Q9967

== ENCOUNTER 2021-02-27 10:26 | Emergency (ER) | payer MEDICARE ==
[2021-02-27] MEDS ORDERED: HYDROcodone/Acetaminophen 10/325 mg Tablet ONE (11:17)
== END 2021-02-27 11:25 | disposition home or self-care (01) ==
LOC: NAV ERS 10:26
DX: S83.91XA Sprain of unspecified site of right knee, initial encounter (principal); M17.11 Unilateral primary osteoarthritis, right knee; I10 Essential (primary) hypertension; X58.XXXA Exposure to other specified factors, initial encounter

== ENCOUNTER 2021-08-18 11:36 | Emergency (ER) | payer MEDICARE ==
[2021-08-18 12:23] LABS: #Basophils 0.1 thou/uL (0.0-0.2); #Eosinphils 0.2 thou/uL (0.0-0.7); #Lymphocytes 1.8 thou/uL (1.20-3.40); #Monocytes 1.1 thou/uL (0.11-0.59); #Neutrophils 8.5 thou/uL (1.40-6.50); %Eosinophils 2.1 % (0.0-10.0); %Lymphocytes 15.5 % (21.0-51.0); %Monocytes 9.4 % (0.0-10.0); %Neutrophils 72.1 % (42.0-75.0); Hemoglobin 8.7 g/dL (12.0-16.0); Mean Corpuscular HGB CONC 30.9 g/dL (32.0-36.0); Mean Corpuscular Volume 80.8 fL (78.0-98.0); Mean Platelet Volume 8.4 fL (7.4-10.4); Platelet Count 207 thou/uL (130-400); RBC Distribution Width 12.9 % (11.5-14.5); Red Blood Cell (RBC) Count 3.46 mill/uL (4.20-5.40); White Blood Cell (WBC) Count 11.8 thou/uL (4.8-10.8)
[2021-08-18] MEDS ORDERED: Furosemide 20 MG/2 ML VIAL ONE (12:23)
[2021-08-18 12:24] LABS: Anisocytosis SLIGHT = 6-15 cells (100X) (0-5/hpf); Hypochromia SLIGHT = 6-15 cells (100X) (0-5/hpf); MDiff Complete? YES; Platelet Morphology Comment Appears Adequate
[2021-08-18 12:47] LABS: ALT (SGPT) 18 U/L (8-55); AST (SGOT) 17 U/L (5-34); Albumin 3.9 g/dL (3.4-4.8); Alkaline Phosphatase 117 U/L (40-110); Anion Gap 17 mmol/L (10-20); BUN (Urea Nitrogen) 31 mg/dL (9.8-20.1); Bilirubin, Total 0.6 mg/dL (0.2-1.2); Calc. Creatinine Clearance 0 mL/min (70-130); Calcium 8.7 mg/dL (7.8-10.44); Carbon Dioxide 26 mmol/L (23-31); Chloride 100 mmol/L (98-107); Glucose 110 mg/dL (83-110); Potassium 3.7 mmol/L (3.5-5.1); Protein, Total 6.9 g/dL (5.8-8.1); Sodium 139 mmol/L (136-145)
[2021-08-18 13:35] LABS: Bilirubin Negative (Negative); Blood, Urine Negative (Negative); Clarity Clear (Clear); Glucose, Urine (Dipstick) Negative (Negative); Ketone, Urine Negative (Negative); Leukocyte Negative (Negative); Nitrite Negative (Negative); Protein, Urine (Dipstick) Negative (Neg-Trace); Urobilinogen 0.2 mg/dL (Less than 2)
[2021-08-18 14:42] LABS: SARS-CoV-2 NAA Rapid Test Not Detected (NotDetected)
== END 2021-08-18 15:23 | disposition short-term general hospital (02) ==
LOC: NAV ERS 11:36
DX: I11.0 Hypertensive heart disease with heart failure (principal); I50.9 Heart failure, unspecified; D64.9 Anemia, unspecified; E11.9 Type 2 diabetes mellitus without complications; Z79.899 Other long term (current) drug therapy; Z79.82 Long term (current) use of aspirin
CPT/HCPCS: 71045; 80053; 81003; 82274; 83605; 83880; 84484; 85025; 93005; 96374; J1940; U0002

== ENCOUNTER 2021-12-28 17:05 | Inpatient (IN) | payer MEDICARE ==
[2021-12-28] MEDS ORDERED: cloNIDine 0.1 MG TAB PO PRN (19:16)
[2021-12-28] MEDS ORDERED: Zolpidem Tartrate 5 MG TAB PO PRN (19:19)
[2021-12-28] MEDS ORDERED: Loratadine 10 MG TAB PO PRN (19:19)
[2021-12-28] MEDS ORDERED: traMADol HCl 50 MG TAB PO PRN ×2 (19:19→19:28)
[2021-12-28] MEDS ORDERED: Sodium Chloride 0.65% Nasal 44 ML BOT EA NARE PRN (19:22)
[2021-12-28] MEDS ORDERED: Ondansetron ODT 4 MG TAB PO PRN (19:22)
[2021-12-28] MEDS ORDERED: Bisacodyl 5 MG TAB PO PRN (19:22)
[2021-12-28] MEDS ORDERED: Calcium Carbonate 500 MG ChewTAB PO PRN (19:22)
[2021-12-28] MEDS ORDERED: Artificial Tear Sol 15 ML BOT EA EYE PRN (19:22)
[2021-12-28] MEDS ORDERED: Cepastat Lozenges 1 LOZ PO PRN (19:22)
[2021-12-28] MEDS ORDERED: Loperamide HCl 2 MG CAP PO PRN ×2 (19:22)
[2021-12-28] MEDS ORDERED: Guaifenesin DM 100-10/5 ML UDCUP PO PRN (19:22)
[2021-12-28] MEDS ORDERED: Senokot S 8.6-50 MG TAB PO PRN (19:22)
[2021-12-28] MEDS ORDERED: Bisacodyl 10 MG SUPP PR PRN (19:22)
[2021-12-28] MEDS ORDERED: Benzonatate 100 MG CAP PO PRN (19:22)
[2021-12-28] MEDS ORDERED: hydrOXYzine 25 MG TAB PO PRN (19:22)
[2021-12-28] MEDS ORDERED: Fluticasone Propionate Nasal Spray 16 gm Bottle NASAL SCH (19:30)
[2021-12-28] MEDS ORDERED: Acetaminophen 325 MG TAB PO SCH (20:15)
[2021-12-28] MEDS: Lisinopril 20 MG TAB PO SCH (20:25)
[2021-12-28] MEDS: Atorvastatin Calcium 20 MG TAB PO SCH (20:25)
[2021-12-28] MEDS: hydrALAZINE 25 MG TAB PO SCH (20:25)
[2021-12-28] MEDS: Famotidine 20 MG TAB PO SCH (20:25)
[2021-12-29 01:21] LABS: Bilirubin Negative (Negative); Blood, Urine Negative (Negative); Clarity Clear (Clear); Glucose, Urine (Dipstick) Negative (Negative); Ketone, Urine Negative (Negative); Leukocyte Negative (Negative); Nitrite Negative (Negative); Protein, Urine (Dipstick) 30 mg/dL (Neg-Trace); Urobilinogen 0.2 mg/dL (Less than 2); pH, Urine 5.5 (5.0-9.0)
[2021-12-29 01:23] LABS: Bacteria/HPF None Seen HPF (None Seen); RBC/HPF None Seen HPF (0-3); Squamous Epithelial None Seen HPF (0-3); WBC/HPF None Seen HPF (0-3)
[2021-12-29] MEDS: HYDROcodone/Acetaminophen 10/325 mg Tablet PO PRN ×2 (05:46→13:11)
[2021-12-29 06:21] LABS: Hemoglobin 7.7 g/dL (12.0-16.0); Mean Corpuscular HGB CONC 28.9 g/dL (32.0-36.0); Mean Corpuscular Hemoglobin 24.1 pg (27.0-31.0); Mean Corpuscular Volume 83.5 fL (78.0-98.0); Platelet Count 193 thou/uL (130-400); RBC Distribution Width 13.5 % (11.5-14.5); White Blood Cell (WBC) Count 13.8 thou/uL (4.8-10.8)
[2021-12-29 06:22] LABS: #Basophils 0.1 thou/uL (0.0-0.2); #Eosinphils 0.1 thou/uL (0.0-0.7); #Lymphocytes 1.1 thou/uL (1.20-3.40); #Monocytes 1.3 thou/uL (0.11-0.59); #Neutrophils 11.3 thou/uL (1.40-6.50); %Basophils 0.6 % (0.0-1.0); %Eosinophils 0.7 % (0.0-10.0); %Lymphocytes 8.2 % (21.0-51.0); %Monocytes 9.1 % (0.0-10.0); %Neutrophils 81.4 % (42.0-75.0); Manual Diff?? NO
[2021-12-29 06:34] LABS: ALT (SGPT) 7 U/L (8-55); AST (SGOT) 12 U/L (5-34); Albumin 3.4 g/dL (3.4-4.8); Alkaline Phosphatase 49 U/L (40-110); Anion Gap 15 mmol/L (10-20); BUN (Urea Nitrogen) 21 mg/dL (9.8-20.1); Bilirubin, Total 0.5 mg/dL (0.2-1.2); Calc. Creatinine Clearance 45 mL/min (70-130); Calcium 9.1 mg/dL (7.8-10.44); Carbon Dioxide 20 mmol/L (23-31); Chloride 104 mmol/L (98-107); Globulin 3.2 g/dL (2.4-3.5); Glucose 93 mg/dL (83-110); Protein, Total 6.6 g/dL (5.8-8.1); Sodium 135 mmol/L (136-145)
[2021-12-29] MEDS: hydrALAZINE 25 MG TAB PO SCH ×3 (07:43→20:34)
[2021-12-29] MEDS: Furosemide 20 MG TAB PO SCH (07:43)
[2021-12-29] MEDS: Aspirin 81 mg Enteric Coated Tablet PO SCH (07:43)
[2021-12-29] MEDS: Amlodipine 10 MG TAB PO SCH (07:43)
[2021-12-29] MEDS: Ferrous Gluconate 324 MG TAB PO SCH (07:44)
[2021-12-29] MEDS: Enoxaparin Sodium 40 MG/0.4 ML SYRINGE SC SCH (07:44)
[2021-12-29] MEDS: Cholecalciferol 1,000 UNITS (25 MCG) TAB PO SCH (07:44)
[2021-12-29] MEDS: Fluticasone Propionate Nasal Spray 16 gm Bottle NASAL SCH (07:57)
[2021-12-29] MEDS: Lisinopril 20 MG TAB PO SCH ×2 (07:57→20:34)
[2021-12-29] MEDS ORDERED: HumaLOG 300 UNITS/3 ML VIAL SC PRN (08:43)
[2021-12-29] MEDS ORDERED: Dextrose 50% Abboject 50 ML SYRINGE SLOW IVP PRN (08:43)
[2021-12-29] MEDS: cloNIDine 0.1 MG TAB PO PRN ×2 (10:01→13:02)
[2021-12-29] MEDS: Famotidine 20 MG TAB PO SCH (20:34)
[2021-12-29] MEDS: Atorvastatin Calcium 20 MG TAB PO SCH (20:34)
[2021-12-29] MEDS ORDERED: Acetaminophen 325 MG TAB PO PRN (20:36)
[2021-12-30] MEDS: HYDROcodone/Acetaminophen 10/325 mg Tablet PO PRN ×2 (03:17→20:17)
[2021-12-30] MEDS: Lisinopril 20 MG TAB PO SCH ×2 (07:40→20:18)
[2021-12-30] MEDS: Aspirin 81 mg Enteric Coated Tablet PO SCH (07:40)
[2021-12-30] MEDS: Furosemide 20 MG TAB PO SCH (07:41)
[2021-12-30] MEDS: Ferrous Gluconate 324 MG TAB PO SCH (07:41)
[2021-12-30] MEDS: Enoxaparin Sodium 40 MG/0.4 ML SYRINGE SC SCH (07:41)
[2021-12-30] MEDS: Amlodipine 10 MG TAB PO SCH (07:41)
[2021-12-30] MEDS: Cholecalciferol 1,000 UNITS (25 MCG) TAB PO SCH (07:41)
[2021-12-30] MEDS: hydrALAZINE 25 MG TAB PO SCH ×3 (07:41→20:18)
[2021-12-30] MEDS: Fluticasone Propionate Nasal Spray 16 gm Bottle NASAL SCH (07:42)
[2021-12-30 08:09] LABS: Hemoglobin 7.4 g/dL (12.0-16.0); Mean Corpuscular Hemoglobin 23.9 pg (27.0-31.0); Mean Corpuscular Volume 82.6 fL (78.0-98.0); Platelet Count 210 thou/uL (130-400); White Blood Cell (WBC) Count 12.2 thou/uL (4.8-10.8)
[2021-12-30 08:24] LABS: Eosinophils 1 % (0-10); Hypochromia SLIGHT = 6-15 cells (100X) (0-5/hpf); Lymphocytes 11 % (21-51); MDiff Complete? YES; Monocytes 10 % (0-10); Neutrophil 78 % (42-75); Platelet Morphology Comment Appears Adequate; Schistocytes SLIGHT = 2-5 cells (100X) (0-1/hpf); Tear Drops SLIGHT = 2-5 cells (100X) (0-1/hpf)
[2021-12-30] MEDS ORDERED: Chlorthalidone 25 MG TAB PO SCH (10:45)
[2021-12-30] MEDS: cloNIDine 0.1 MG TAB PO PRN (19:19)
[2021-12-30] MEDS: Atorvastatin Calcium 20 MG TAB PO SCH (20:18)
[2021-12-30] MEDS: Famotidine 20 MG TAB PO SCH (20:18)
[2021-12-31 08:07] LABS: Hemoglobin 7.4 g/dL (12.0-16.0); Mean Corpuscular HGB CONC 29.5 g/dL (32.0-36.0); Mean Corpuscular Hemoglobin 24.1 pg (27.0-31.0); Mean Corpuscular Volume 81.7 fL (78.0-98.0); Mean Platelet Volume 8.9 fL (7.4-10.4); Platelet Count 239 thou/uL (130-400); RBC Distribution Width 12.7 % (11.5-14.5); Red Blood Cell (RBC) Count 3.07 mill/uL (4.20-5.40); White Blood Cell (WBC) Count 10.2 thou/uL (4.8-10.8)
[2021-12-31 08:44] LABS: Eosinophils 2 % (0-10); Hypochromia SLIGHT = 6-15 cells (100X) (0-5/hpf); Lymphocytes 8 % (21-51); MDiff Complete? YES; Monocytes 5 % (0-10); Neutrophil 85 % (42-75); Platelet Morphology Comment Appears Adequate
[2021-12-31] MEDS: Aspirin 81 mg Enteric Coated Tablet PO SCH (09:03)
[2021-12-31] MEDS: Furosemide 20 MG TAB PO SCH (09:04)
[2021-12-31] MEDS: Enoxaparin Sodium 40 MG/0.4 ML SYRINGE SC SCH (09:04)
[2021-12-31] MEDS: Cholecalciferol 1,000 UNITS (25 MCG) TAB PO SCH (09:04)
[2021-12-31] MEDS: Fluticasone Propionate Nasal Spray 16 gm Bottle NASAL SCH (09:04)
[2021-12-31] MEDS: Chlorthalidone 25 MG TAB PO SCH (09:04)
[2021-12-31] MEDS: Amlodipine 10 MG TAB PO SCH (09:04)
[2021-12-31] MEDS: Ferrous Gluconate 324 MG TAB PO SCH (09:04)
[2021-12-31] MEDS: Lisinopril 20 MG TAB PO SCH ×2 (09:05→20:34)
[2021-12-31] MEDS: hydrALAZINE 25 MG TAB PO SCH ×3 (09:05→20:34)
[2021-12-31] MEDS: cloNIDine 0.1 MG TAB PO PRN (11:18)
[2021-12-31] MEDS: HYDROcodone/Acetaminophen 10/325 mg Tablet PO PRN ×2 (11:18→20:34)
[2021-12-31 15:58] LABS: Ferritin 569.01 ng/mL (10-291)
[2021-12-31] MEDS: Atorvastatin Calcium 20 MG TAB PO SCH (20:34)
[2021-12-31] MEDS: Famotidine 20 MG TAB PO SCH (20:34)
[2022-01-01 05:34] LABS: Hemoglobin 7.3 g/dL (12.0-16.0); Mean Corpuscular HGB CONC 28.2 g/dL (32.0-36.0); Mean Corpuscular Hemoglobin 23.5 pg (27.0-31.0); Mean Corpuscular Volume 83.3 fL (78.0-98.0); Red Blood Cell (RBC) Count 3.11 mill/uL (4.20-5.40); White Blood Cell (WBC) Count 9.3 thou/uL (4.8-10.8)
[2022-01-01 05:35] LABS: #Basophils 0.1 thou/uL (0.0-0.2); #Eosinphils 0.3 thou/uL (0.0-0.7); #Lymphocytes 1.2 thou/uL (1.20-3.40); #Monocytes 1.4 thou/uL (0.11-0.59); #Neutrophils 6.3 thou/uL (1.40-6.50); %Basophils 1.4 % (0.0-1.0); %Eosinophils 3.2 % (0.0-10.0); %Lymphocytes 12.6 % (21.0-51.0); %Monocytes 14.8 % (0.0-10.0); Manual Diff?? NO; Mean Platelet Volume 8.9 fL (7.4-10.4); Platelet Count 247 thou/uL (130-400); RBC Distribution Width 12.9 % (11.5-14.5)
[2022-01-01 05:41] LABS: Anion Gap 15 mmol/L (10-20); BUN (Urea Nitrogen) 29 mg/dL (9.8-20.1); Calc. Creatinine Clearance 37 mL/min (70-130); Calcium 9.1 mg/dL (7.8-10.44); Carbon Dioxide 23 mmol/L (23-31); Chloride 99 mmol/L (98-107); Glucose 99 mg/dL (83-110); Potassium 3.9 mmol/L (3.5-5.1); Sodium 133 mmol/L (136-145)
[2022-01-01] MEDS: Fluticasone Propionate Nasal Spray 16 gm Bottle NASAL SCH (09:12)
[2022-01-01] MEDS: Furosemide 20 MG TAB PO SCH (09:14)
[2022-01-01] MEDS: Lisinopril 20 MG TAB PO SCH ×2 (09:14→20:26)
[2022-01-01] MEDS: hydrALAZINE 25 MG TAB PO SCH ×3 (09:14→20:26)
[2022-01-01] MEDS: Cholecalciferol 1,000 UNITS (25 MCG) TAB PO SCH (09:14)
[2022-01-01] MEDS: Aspirin 81 mg Enteric Coated Tablet PO SCH (09:14)
[2022-01-01] MEDS: Ferrous Gluconate 324 MG TAB PO SCH (09:14)
[2022-01-01] MEDS: Amlodipine 10 MG TAB PO SCH (09:15)
[2022-01-01] MEDS: Chlorthalidone 25 MG TAB PO SCH (09:15)
[2022-01-01] MEDS: Enoxaparin Sodium 30 MG/0.3 ML SYRINGE SC SCH (09:42)
[2022-01-01] MEDS: HYDROcodone/Acetaminophen 10/325 mg Tablet PO PRN ×2 (10:40→20:26)
[2022-01-01 14:39] LABS: SARS-CoV-2 PCR by NAA Not Detected (NotDetected)
[2022-01-01] MEDS: Famotidine 20 MG TAB PO SCH (20:26)
[2022-01-01] MEDS: Atorvastatin Calcium 20 MG TAB PO SCH (20:26)
[2022-01-02] MEDS: Ferrous Gluconate 324 MG TAB PO SCH (08:03)
[2022-01-02] MEDS: Amlodipine 10 MG TAB PO SCH (08:03)
[2022-01-02] MEDS: Aspirin 81 mg Enteric Coated Tablet PO SCH (08:03)
[2022-01-02] MEDS: Furosemide 20 MG TAB PO SCH (08:03)
[2022-01-02] MEDS: hydrALAZINE 25 MG TAB PO SCH ×3 (08:03→20:25)
[2022-01-02] MEDS: Cholecalciferol 1,000 UNITS (25 MCG) TAB PO SCH (08:03)
[2022-01-02] MEDS: Lisinopril 20 MG TAB PO SCH ×2 (08:04→20:26)
[2022-01-02] MEDS: Chlorthalidone 25 MG TAB PO SCH (08:04)
[2022-01-02] MEDS: Fluticasone Propionate Nasal Spray 16 gm Bottle NASAL SCH (08:04)
[2022-01-02] MEDS: Enoxaparin Sodium 30 MG/0.3 ML SYRINGE SC SCH (08:04)
[2022-01-02] MEDS: HYDROcodone/Acetaminophen 10/325 mg Tablet PO PRN ×2 (08:10→20:49)
[2022-01-02] MEDS: Atorvastatin Calcium 20 MG TAB PO SCH (20:26)
[2022-01-02] MEDS: Famotidine 20 MG TAB PO SCH (20:26)
[2022-01-03] MEDS ORDERED: EPINEPHrine 1 MG/ML AMP IVP PRN (08:03)
[2022-01-03] MEDS: hydrALAZINE 25 MG TAB PO SCH ×3 (08:07→20:13)
[2022-01-03] MEDS: Amlodipine 10 MG TAB PO SCH ×2 (08:07→08:09)
[2022-01-03] MEDS: HYDROcodone/Acetaminophen 10/325 mg Tablet PO PRN ×2 (08:08→20:13)
[2022-01-03] MEDS: Lisinopril 20 MG TAB PO SCH ×2 (08:10→20:13)
[2022-01-03] MEDS ORDERED: diphenhydrAMINE 50 MG/ML VIAL IVP SCH (08:15)
[2022-01-03] MEDS: Chlorthalidone 25 MG TAB PO SCH (09:06)
[2022-01-03] MEDS: Furosemide 20 MG TAB PO SCH (09:07)
[2022-01-03] MEDS: Aspirin 81 mg Enteric Coated Tablet PO SCH (09:07)
[2022-01-03] MEDS: Cholecalciferol 1,000 UNITS (25 MCG) TAB PO SCH (09:07)
[2022-01-03] MEDS: Fluticasone Propionate Nasal Spray 16 gm Bottle NASAL SCH (09:08)
[2022-01-03] MEDS: Ferrous Gluconate 324 MG TAB PO SCH (09:08)
[2022-01-03] MEDS: Enoxaparin Sodium 30 MG/0.3 ML SYRINGE SC SCH (09:08)
[2022-01-03 16:54] LABS: Hemoglobin 9.2 g/dL (12.0-16.0)
[2022-01-03] MEDS: Famotidine 20 MG TAB PO SCH (20:13)
[2022-01-03] MEDS: Atorvastatin Calcium 20 MG TAB PO SCH (20:13)
[2022-01-04 07:00] LABS: #Basophils 0.1 thou/uL (0.0-0.2); #Eosinphils 0.7 thou/uL (0.0-0.7); #Lymphocytes 2.1 thou/uL (1.20-3.40); #Monocytes 1.5 thou/uL (0.11-0.59); #Neutrophils 7.4 thou/uL (1.40-6.50); %Basophils 1.1 % (0.0-1.0); %Eosinophils 6.1 % (0.0-10.0); %Lymphocytes 18.1 % (21.0-51.0); %Monocytes 12.3 % (0.0-10.0); %Neutrophils 62.5 % (42.0-75.0); Hemoglobin 8.7 g/dL (12.0-16.0); Mean Corpuscular HGB CONC 29.2 g/dL (32.0-36.0); Mean Corpuscular Hemoglobin 24.3 pg (27.0-31.0); Mean Corpuscular Volume 83.3 fL (78.0-98.0); Mean Platelet Volume 7.7 fL (7.4-10.4); Platelet Count 381 thou/uL (130-400); RBC Distribution Width 12.8 % (11.5-14.5); Red Blood Cell (RBC) Count 3.56 mill/uL (4.20-5.40); White Blood Cell (WBC) Count 11.9 thou/uL (4.8-10.8)
[2022-01-04 07:19] LABS: Anion Gap 14 mmol/L (10-20); BUN (Urea Nitrogen) 34 mg/dL (9.8-20.1); Calc. Creatinine Clearance 35 mL/min (70-130); Calcium 9.2 mg/dL (7.8-10.44); Carbon Dioxide 25 mmol/L (23-31); Chloride 98 mmol/L (98-107); Glucose 98 mg/dL (83-110); Potassium 4.4 mmol/L (3.5-5.1); Sodium 133 mmol/L (136-145)
[2022-01-04] MEDS: HYDROcodone/Acetaminophen 10/325 mg Tablet PO PRN (08:09)
[2022-01-04] MEDS: Chlorthalidone 25 MG TAB PO SCH (08:12)
[2022-01-04] MEDS: Enoxaparin Sodium 30 MG/0.3 ML SYRINGE SC SCH (08:12)
[2022-01-04] MEDS: hydrALAZINE 25 MG TAB PO SCH ×3 (08:12→21:37)
[2022-01-04] MEDS: Aspirin 81 mg Enteric Coated Tablet PO SCH (08:13)
[2022-01-04] MEDS: Ferrous Gluconate 324 MG TAB PO SCH (08:13)
[2022-01-04] MEDS: Lisinopril 20 MG TAB PO SCH ×2 (08:13→21:38)
[2022-01-04] MEDS: Cholecalciferol 1,000 UNITS (25 MCG) TAB PO SCH (08:14)
[2022-01-04] MEDS: Furosemide 20 MG TAB PO SCH (08:14)
[2022-01-04] MEDS: Fluticasone Propionate Nasal Spray 16 gm Bottle NASAL SCH (08:15)
[2022-01-04] MEDS: Famotidine 20 MG TAB PO SCH (21:37)
[2022-01-04] MEDS: Atorvastatin Calcium 20 MG TAB PO SCH (21:37)
[2022-01-05] MEDS: Enoxaparin Sodium 30 MG/0.3 ML SYRINGE SC SCH (07:50)
[2022-01-05] MEDS: Chlorthalidone 25 MG TAB PO SCH ×3 (07:51→09:22)
[2022-01-05] MEDS: Lisinopril 20 MG TAB PO SCH ×2 (07:51→20:52)
[2022-01-05] MEDS: Amlodipine 10 MG TAB PO SCH (07:52)
[2022-01-05] MEDS: hydrALAZINE 25 MG TAB PO SCH ×3 (07:52→20:51)
[2022-01-05] MEDS: Furosemide 20 MG TAB PO SCH (07:53)
[2022-01-05] MEDS: Aspirin 81 mg Enteric Coated Tablet PO SCH (07:53)
[2022-01-05] MEDS: Cholecalciferol 1,000 UNITS (25 MCG) TAB PO SCH (07:53)
[2022-01-05] MEDS: Ferrous Gluconate 324 MG TAB PO SCH (07:53)
[2022-01-05] MEDS: Fluticasone Propionate Nasal Spray 16 gm Bottle NASAL SCH (07:54)
[2022-01-05] MEDS: HYDROcodone/Acetaminophen 10/325 mg Tablet PO PRN (08:05)
[2022-01-05] MEDS: cloNIDine 0.1 MG TAB PO PRN (08:12)
[2022-01-05] MEDS ORDERED: HYDROcodone/Acetaminophen 10/325 mg Tablet PO PRN (10:15)
[2022-01-05] MEDS ORDERED: traMADol HCl 50 MG TAB PO PRN (10:15)
[2022-01-05] MEDS ORDERED: Ondansetron ODT 4 MG TAB SL PRN (10:15)
[2022-01-05 12:57] LABS: #Basophils 0.1 thou/uL (0.0-0.2); #Eosinphils 0.6 thou/uL (0.0-0.7); #Lymphocytes 2.2 thou/uL (1.20-3.40); #Monocytes 1.1 thou/uL (0.11-0.59); #Neutrophils 10.8 thou/uL (1.40-6.50); %Basophils 0.7 % (0.0-1.0); %Eosinophils 4.2 % (0.0-10.0); %Lymphocytes 14.6 % (21.0-51.0); %Monocytes 7.2 % (0.0-10.0); %Neutrophils 73.4 % (42.0-75.0); Hemoglobin 9.6 g/dL (12.0-16.0); Mean Corpuscular HGB CONC 28.8 g/dL (32.0-36.0); Mean Corpuscular Hemoglobin 24.5 pg (27.0-31.0); Mean Corpuscular Volume 84.9 fL (78.0-98.0); Mean Platelet Volume 7.2 fL (7.4-10.4); Platelet Count 462 thou/uL (130-400); RBC Distribution Width 13.2 % (11.5-14.5); Red Blood Cell (RBC) Count 3.91 mill/uL (4.20-5.40); White Blood Cell (WBC) Count 14.7 thou/uL (4.8-10.8)
[2022-01-05 20:13] LABS: Bilirubin Negative (Negative); Blood, Urine Negative (Negative); Glucose, Urine (Dipstick) Negative (Negative); Ketone, Urine Negative (Negative); Leukocyte Negative (Negative); Nitrite Negative (Negative); Protein, Urine (Dipstick) Negative (Neg-Trace); Urobilinogen 0.2 mg/dL (Less than 2); pH, Urine 6.5 (5.0-9.0)
[2022-01-05 20:17] LABS: Clarity Hazy (Clear)
[2022-01-05 20:18] LABS: Urine Culture Reflex No No
[2022-01-05 20:26] LABS: Squamous Epithelial 0-3 HPF (0-3)
[2022-01-05] MEDS: Famotidine 20 MG TAB PO SCH (20:51)
[2022-01-05] MEDS: Atorvastatin Calcium 20 MG TAB PO SCH (20:51)
[2022-01-05] MEDS: traMADol HCl 50 MG TAB PO PRN (20:52)
[2022-01-06 06:21] LABS: Anion Gap 15 mmol/L (10-20); BUN (Urea Nitrogen) 32 mg/dL (9.8-20.1); Calc. Creatinine Clearance 36 mL/min (70-130); Calcium 9.2 mg/dL (7.8-10.44); Carbon Dioxide 26 mmol/L (23-31); Chloride 97 mmol/L (98-107); Glucose 94 mg/dL (83-110); Potassium 4.5 mmol/L (3.5-5.1); Sodium 133 mmol/L (136-145)
[2022-01-06 06:24] LABS: #Basophils 0.1 thou/uL (0.0-0.2); #Eosinphils 0.6 thou/uL (0.0-0.7); #Lymphocytes 1.9 thou/uL (1.20-3.40); #Monocytes 1.1 thou/uL (0.11-0.59); #Neutrophils 7.1 thou/uL (1.40-6.50); %Eosinophils 5.1 % (0.0-10.0); %Lymphocytes 17.8 % (21.0-51.0); %Monocytes 10.2 % (0.0-10.0); %Neutrophils 65.8 % (42.0-75.0); Hemoglobin 8.9 g/dL (12.0-16.0); Mean Corpuscular HGB CONC 30.1 g/dL (32.0-36.0); Mean Platelet Volume 7.3 fL (7.4-10.4); Platelet Count 431 thou/uL (130-400); RBC Distribution Width 12.8 % (11.5-14.5); Red Blood Cell (RBC) Count 3.58 mill/uL (4.20-5.40); White Blood Cell (WBC) Count 10.8 thou/uL (4.8-10.8)
[2022-01-06] MEDS: Amlodipine 10 MG TAB PO SCH (08:37)
[2022-01-06] MEDS: Aspirin 81 mg Enteric Coated Tablet PO SCH (08:37)
[2022-01-06] MEDS: Enoxaparin Sodium 30 MG/0.3 ML SYRINGE SC SCH (08:37)
[2022-01-06] MEDS: Furosemide 20 MG TAB PO SCH (08:38)
[2022-01-06] MEDS: Lisinopril 20 MG TAB PO SCH ×2 (08:38→21:13)
[2022-01-06] MEDS: hydrALAZINE 25 MG TAB PO SCH ×3 (08:38→21:13)
[2022-01-06] MEDS: Ferrous Gluconate 324 MG TAB PO SCH (08:38)
[2022-01-06] MEDS: Cholecalciferol 1,000 UNITS (25 MCG) TAB PO SCH (08:38)
[2022-01-06] MEDS: Fluticasone Propionate Nasal Spray 16 gm Bottle NASAL SCH (08:39)
[2022-01-06] MEDS: Chlorthalidone 25 MG TAB PO SCH (08:39)
[2022-01-06] MEDS: Famotidine 20 MG TAB PO SCH (21:13)
[2022-01-06] MEDS: Atorvastatin Calcium 20 MG TAB PO SCH (21:13)
[2022-01-07 06:27] VITALS: BMI 31.6
[2022-01-07] MEDS: Enoxaparin Sodium 30 MG/0.3 ML SYRINGE SC SCH (08:31)
[2022-01-07] MEDS: Fluticasone Propionate Nasal Spray 16 gm Bottle NASAL SCH (08:31)
[2022-01-07] MEDS: Chlorthalidone 25 MG TAB PO SCH (08:31)
[2022-01-07] MEDS: Amlodipine 10 MG TAB PO SCH (08:32)
[2022-01-07] MEDS: Ferrous Gluconate 324 MG TAB PO SCH (08:32)
[2022-01-07] MEDS: hydrALAZINE 25 MG TAB PO SCH ×3 (08:32→20:40)
[2022-01-07] MEDS: Furosemide 20 MG TAB PO SCH (08:32)
[2022-01-07] MEDS: Cholecalciferol 1,000 UNITS (25 MCG) TAB PO SCH (08:33)
[2022-01-07] MEDS: Aspirin 81 mg Enteric Coated Tablet PO SCH (08:33)
[2022-01-07] MEDS: Lisinopril 20 MG TAB PO SCH ×2 (08:33→20:41)
[2022-01-07] MEDS ORDERED: hydrALAZINE 25 MG TAB PO SCH ×2 (09:45→15:00)
[2022-01-07] MEDS: Famotidine 20 MG TAB PO SCH (20:40)
[2022-01-07] MEDS: Atorvastatin Calcium 20 MG TAB PO SCH (20:40)
[2022-01-07] MEDS: traMADol HCl 50 MG TAB PO PRN (20:41)
[2022-01-07 21:14] LABS: SARS-CoV-2 PCR by NAA Not Detected (NotDetected)
[2022-01-08 06:44] LABS: Anion Gap 15 mmol/L (10-20); BUN (Urea Nitrogen) 33 mg/dL (9.8-20.1); Calc. Creatinine Clearance 32 mL/min (70-130); Calcium 9.4 mg/dL (7.8-10.44); Carbon Dioxide 26 mmol/L (23-31); Chloride 98 mmol/L (98-107); Glucose 96 mg/dL (83-110); Potassium 4.4 mmol/L (3.5-5.1); Sodium 135 mmol/L (136-145)
[2022-01-08 07:25] VITALS: TEMP 97
[2022-01-08 07:26] LABS: #Basophils 0.1 thou/uL (0.0-0.2); #Eosinphils 0.4 thou/uL (0.0-0.7); #Lymphocytes 1.9 thou/uL (1.20-3.40); #Monocytes 1.1 thou/uL (0.11-0.59); #Neutrophils 8.3 thou/uL (1.40-6.50); %Basophils 0.8 % (0.0-1.0); %Eosinophils 3.2 % (0.0-10.0); %Lymphocytes 15.9 % (21.0-51.0); %Monocytes 10.5 % (0.0-10.0); %Neutrophils 69.7 % (42.0-75.0); Hemoglobin 9.2 g/dL (12.0-16.0); Mean Corpuscular HGB CONC 29.4 g/dL (32.0-36.0); Mean Corpuscular Hemoglobin 24.5 pg (27.0-31.0); Mean Corpuscular Volume 83.4 fL (78.0-98.0); Mean Platelet Volume 7.5 fL (7.4-10.4); Platelet Count 493 thou/uL (130-400); RBC Distribution Width 12.9 % (11.5-14.5); White Blood Cell (WBC) Count 12.1 thou/uL (4.8-10.8)
[2022-01-08] MEDS: Ferrous Gluconate 324 MG TAB PO SCH (09:07)
[2022-01-08] MEDS: Amlodipine 10 MG TAB PO SCH (09:08)
[2022-01-08] MEDS: Lisinopril 20 MG TAB PO SCH (09:09)
[2022-01-08] MEDS: Chlorthalidone 25 MG TAB PO SCH (09:09)
[2022-01-08] MEDS: Furosemide 20 MG TAB PO SCH (09:09)
[2022-01-08] MEDS: Aspirin 81 mg Enteric Coated Tablet PO SCH (09:10)
[2022-01-08] MEDS: Fluticasone Propionate Nasal Spray 16 gm Bottle NASAL SCH (09:11)
[2022-01-08] MEDS: Cholecalciferol 1,000 UNITS (25 MCG) TAB PO SCH (09:11)
[2022-01-08] MEDS: hydrALAZINE 25 MG TAB PO SCH (09:12)
[2022-01-08] MEDS: Enoxaparin Sodium 30 MG/0.3 ML SYRINGE SC SCH (09:13)
[2022-01-08 12:44] VITALS: BP 170/74
== END 2022-01-08 10:30 | disposition home health service (06) | DRG 560 ==
LOC: NAV ACUTE 18:18
PROVIDERS: ADMIT Family Medicine; ATTEND Family Medicine
PROC: 30233N1 Transfusion of Nonautologous Red Blood Cells into Peripheral Vein, Percutaneous Approach (ICD-10-PCS; principal; 2022-01-03)
DX: Z47.1 Aftercare following joint replacement surgery (principal); I50.32 Chronic diastolic (congestive) heart failure; I13.0 Hypertensive heart and chronic kidney disease with heart failure and stage 1 through stage 4 chronic kidney disease, or unspecified chronic kidney disease; E87.1 Hypo-osmolality and hyponatremia; Z66 Do not resuscitate; Z20.822 Contact with and (suspected) exposure to COVID-19; E78.5 Hyperlipidemia, unspecified; E66.9 Obesity, unspecified; I07.1 Rheumatic tricuspid insufficiency; J30.9 Allergic rhinitis, unspecified; I16.0 Hypertensive urgency; N18.32 Chronic kidney disease, stage 3b; D72.829 Elevated white blood cell count, unspecified; D63.1 Anemia in chronic kidney disease; E11.22 Type 2 diabetes mellitus with diabetic chronic kidney disease; M17.12 Unilateral primary osteoarthritis, left knee; Z79.899 Other long term (current) drug therapy; Z79.82 Long term (current) use of aspirin; Z79.891 Long term (current) use of opiate analgesic; Z68.31 Body mass index [BMI] 31.0-31.9, adult
CPT/HCPCS: 36415; 36416; 36430; 71045; 80048; 80053; 81001; 82274; 82607; 82728; 82746; 85014; 85018; 85025; 86850; 86900; 86901; J1200; J1650; P9016; U0003; U0005

== ENCOUNTER 2022-08-25 09:30 | Emergency (ER) | payer MEDICARE ==
[2022-08-25] MEDS ORDERED: Sodium Chloride 0.9% 1,000 ML ONE (09:57)
[2022-08-25 10:04] LABS: Bilirubin Negative (Negative); Blood, Urine Negative (Negative); Clarity Cloudy (Clear); Glucose, Urine (Dipstick) Negative (Negative); Hemoglobin 10.9 g/dL (12.0-16.0); Ketone, Urine Negative (Negative); Leukocyte Negative (Negative); Manual Diff?? YES; Mean Corpuscular HGB CONC 31.3 g/dL (32.0-36.0); Mean Corpuscular Hemoglobin 25.3 pg (27.0-31.0); Mean Corpuscular Volume 80.7 fl (78.0-98.0); Mean Platelet Volume 9.6 fL (7.4-10.4); Nitrite Negative (Negative); Platelet Count 242 10x3/uL (130-400); Protein, Urine (Dipstick) 100 mg/dL (Neg-Trace); RBC Distribution Width 13.2 % (11.5-14.5); Specific Gravity, Urine 1.025 (1.005-1.030); Urobilinogen 0.2 mg/dL (Less than 2); White Blood Cell (WBC) Count 6.8 10x3/uL (4.8-10.8); pH, Urine 5.5 (5.0-9.0)
[2022-08-25 10:05] LABS: MDiff Complete? YES
[2022-08-25 10:18] LABS: RBC/HPF 0-3 HPF (0-3); WBC/HPF 0-3 HPF (0-3)
[2022-08-25 10:19] LABS: Bacteria/HPF 2+ HPF (None Seen); Mucous/LPF 1+ LPF (<2+)
[2022-08-25 10:30] LABS: Band 17 % (5-11); Eosinophils 1 % (0-10); Lymphocytes 27 % (21-51); Monocytes 19 % (0-10); Neutrophil 35 % (42-75); Platelet Morphology Comment Appears Adequate; Reactive Lymphocytes 1 % (0-10)
[2022-08-25 10:48] LABS: ALT (SGPT) 9 U/L (8-55); AST (SGOT) 11 U/L (5-34); Albumin 3.9 g/dL (3.4-4.8); Alkaline Phosphatase 52 U/L (40-110); Anion Gap 16 mmol/L (10-20); BUN (Urea Nitrogen) 34 mg/dL (9.8-20.1); Bilirubin, Total 0.3 mg/dL (0.2-1.2); Calc. Creatinine Clearance 0 mL/min (70-130); Calcium 9.3 mg/dL (7.8-10.44); Carbon Dioxide 24 mmol/L (23-31); Chloride 101 mmol/L (98-107); Estimated GFR 27; Glucose 113 mg/dL (83-110); Lipase 19 U/L (8-78); Potassium 3.5 mmol/L (3.5-5.1); Protein, Total 6.9 g/dL (5.8-8.1); Sodium 137 mmol/L (136-145)
== END 2022-08-25 11:11 | disposition home or self-care (01) ==
LOC: NAV ERS 09:30
DX: K52.9 Noninfective gastroenteritis and colitis, unspecified (principal); I11.0 Hypertensive heart disease with heart failure; I50.9 Heart failure, unspecified; E11.9 Type 2 diabetes mellitus without complications; Z79.899 Other long term (current) drug therapy; Z79.82 Long term (current) use of aspirin
CPT/HCPCS: 36415; 80053; 81003; 81015; 83605; 83690; 85025; 96360; J7050

== ENCOUNTER 2024-06-09 14:03 | Emergency (ER) | payer MEDICARE ==
[2024-06-09] MEDS ORDERED: Sulfameth/Trimethoprim DS 800-160mg TAB ONE (14:48)
== END 2024-06-09 15:02 | disposition home or self-care (01) ==
LOC: NAV ERS 14:03
DX: L03.116 Cellulitis of left lower limb (principal); I11.0 Hypertensive heart disease with heart failure; I50.9 Heart failure, unspecified; E11.9 Type 2 diabetes mellitus without complications; Z79.899 Other long term (current) drug therapy; Z79.82 Long term (current) use of aspirin
CPT/HCPCS: 99282

== ENCOUNTER 2024-06-23 10:24 | Outpatient (CLI) | payer MEDICARE | END 2024-06-23 10:25 | disposition home or self-care (01) | LOC: NAV RAD 10:24 | PROVIDERS: ATTEND Family Medicine | DX: L03.116 Cellulitis of left lower limb (principal) ==

== ENCOUNTER 2024-08-25 09:08 | Emergency (ER) | payer MEDICARE ==
[2024-08-25] MEDS ORDERED: Albuterol 2.5 MG (3 mL) NEB ONE (10:09)
[2024-08-25] MEDS ORDERED: Azithromycin 250 MG TAB ONE (10:46)
== END 2024-08-25 11:11 | disposition home or self-care (01) ==
LOC: NAV ERS 09:08
DX: J18.9 Pneumonia, unspecified organism (principal); I11.0 Hypertensive heart disease with heart failure; I50.9 Heart failure, unspecified; E11.9 Type 2 diabetes mellitus without complications; Z79.899 Other long term (current) drug therapy; Z79.82 Long term (current) use of aspirin
CPT/HCPCS: 71046; 87400; 87426; 94640; 94664; J7611